=== PATIENT | male | born 1970 ===

== ENCOUNTER 2021-11-02 21:46 | Emergency (ER) | payer OTHER ==
[~2021-11-02] VITALS: Ht 175.3 cm; Wt 105.7 kg
[~2021-11-02 21:46] MED LIST: ASPI81CH PO; ATEN25 PO; ATOR20 PO; PANT40 PO
== END 2021-11-02 23:09 | disposition home or self-care (01) ==
LOC: ER 21:46
DX: S61.217A Laceration without foreign body of left little finger without damage to nail, initial encounter (principal); I25.2 Old myocardial infarction; Z23 Encounter for immunization; Z79.82 Long term (current) use of aspirin; Z79.899 Other long term (current) drug therapy; W26.0XXA Contact with knife, initial encounter
CPT/HCPCS: 12001; 90471; 90714; 99282